=== PATIENT | female | born 1980 | race Caucasian/White ===

== ENCOUNTER 2019-11-09 11:30 | Emergency (ER) | payer MEDICAID ==
[~2019-11-09] VITALS: Ht 162.6 cm; Wt 77.3 kg
[~2019-11-09 11:30] MED LIST: CITA20TA2 PO; LORA0.5T PO
[2019-11-09 12:03] VITALS: BP 129/71
[2019-11-09] MEDS ORDERED: IBUP-1984 PO (12:23)
[2019-11-09] MEDS ORDERED: ARM1EACH89 (12:23)
== END 2019-11-09 12:37 | disposition home or self-care (01) ==
LOC: ER 11:30
DX: M77.11 Lateral epicondylitis, right elbow (principal); M25.521 Pain in right elbow; F12.90 Cannabis use, unspecified, uncomplicated; Z90.49 Acquired absence of other specified parts of digestive tract; Z56.0 Unemployment, unspecified; Z88.8 Allergy status to other drugs, medicaments and biological substances; Z79.899 Other long term (current) drug therapy
CPT/HCPCS: 99282